=== PATIENT | male | born 1985 ===

== ENCOUNTER 2016-11-26 08:09 | Emergency (ER) | payer OTHER ==
[2016-11-26 08:20] VITALS: RESP 18
[2016-11-26] MEDS ORDERED: Lidocaine 5% Patch TD STA (08:40)
[2016-11-26] MEDS ORDERED: Lidocaine 5% Patch TD ONE (09:06)
--- NOTE | 2016-11-26 09:26 | C.PDOC ---
History Of Present Illness 31 yr old male presents to the ER with complaints of left sided back pain, radiating down the left leg for the past 1 week. Patient states the pain started after lifting a window while at work. Reports he has been taking Tylenol and Advil with minimal relief. Patient denies abdominal pain, diarrhea, constipation, dysuria, incontinence, weakness or numbness. Time Seen by Provider: 11/26/16 08:30 Chief Complaint (Nursing): Back Pain History Per: Patient History/Exam Limitations: no limitations Onset/Duration Of Symptoms: Days (1 week) Current Symptoms Are (Timing): Still Present Associated Symptoms: None Recent travel outside of the [place]: No Past Medical History Reviewed: Historical Data, Nursing Documentation, Vital Signs Vital Signs: Last Vital Signs Temp 97.9 F 11/26/16 09:45 Pulse 84 11/26/16 09:45 Resp 18 11/26/16 09:45 BP 125/77 11/26/16 09:45 Pulse Ox 98 11/26/16 09:45 Family History: States: No Known Family Hx - Social History Hx Alcohol Use: No Hx Substance Use: No - Immunization History Hx Tetanus Toxoid Vaccination: Yes Hx Influenza Vaccination: Yes Hx Pneumococcal Vaccination: No Review Of Systems Except As Marked, All Systems Reviewed And Found Negative. Gastrointestinal: Negative for: Abdominal Pain, Diarrhea, Constipation Genitourinary: Negative for: Dysuria, Incontinence Musculoskeletal: Positive for: Back Pain (Left sided), Leg Pain (radiating pain down the left leg) Neurological: Negative for: Weakness, Numbness Physical Exam - Physical Exam Appears: Non-toxic, No Acute Distress Skin: Warm, Dry, No Rash Head: Atraumatic, Normacephalic Eye(s): bilateral: Normal Inspection Oral Mucosa: Moist Neck: Normal ROM Chest: Symmetrical, No Tenderness Cardiovascular: Rhythm Regular, No Murmur Respiratory: Normal Breath Sounds, No Rales, No Rhonchi, No Stridor, No Wheezing Gastrointestinal/Abdominal: Normal Exam, Soft, No Tenderness, No Guarding, No Rebound Back: Normal Inspection, No Vertebral Tenderness, No Decreased ROM, No Muscle Spasm, Paraspinal Tenderness, Other ((+) Paralumbar tenderness.) Extremity: Normal ROM, No Tenderness, No Deformity, No Swelling Neurological/Psych: Oriented x3, Normal Speech, Normal Motor Gait: Steady ED Course And Treatment O2 Sat by Pulse Oximetry: 95 (RA) Pulse Ox Interpretation: Normal Medical Decision Making Medical Decision Making: PLAN: * Lidoderm TD * Valium PO * Toradol IM Re-eval: Patient reports pain is improving and is ambulatory without signs of discomfort. Disposition Counseled Patient/Family Regarding: Diagnosis, Need For Followup, Rx Given - Disposition Referrals: [facility] at [facility] [Outside] [facility] [place] [Outside] [facility]. [employer] [place] [Outside] Disposition: HOME/ ROUTINE Disposition Time: 09:25 Condition: STABLE Additional Instructions: Vaya a hill mdico o la clnica en 2-5 figueredo sin falta, para mas evaluacin. [place] los medicamentos ashley indicado. Volver a la kyle de emergencia en cualquier momento si los sntomas persisten o empeoran. Prescriptions: Cyclobenzaprine [Cyclobenzaprine HCl] 10 mg PO TID #30 tab Ibuprofen [Motrin] 600 mg PO Q8 #30 tab Instructions: Sciatica (ED) Forms: Numerous (Persian) Print Language: SAMI - POA Present On Arrival: None - Clinical Impression Clinical Impression: Sciatica, Low back strain, Low back pain - PA / TALENT DIRECTOR / Resident Statement MD/DO has reviewed & agrees with the documentation as recorded. - Scribe Statement The provider has reviewed the documentation as recorded by the Scribe Lisa Whittaker All medical record entries made by the Scribe were at my direction and personally dictated by me. I have reviewed the chart and agree that the record accurately reflects my personal performance of the history, physical exam, medical decision making, and the department course for this patient. I have also personally directed, reviewed, and agree with the discharge instructions and disposition.
[2016-11-26 09:46] VITALS: BP 125/77; PULSE 84; TEMP 97.9
[2016-11-26 18:44] VITALS: O2SAT 95
== END 2016-11-26 09:53 | disposition home or self-care (01) ==
LOC: C.ER 08:09
DX: M54.40 Lumbago with sciatica, unspecified side (principal); S39.012A Strain of muscle, fascia and tendon of lower back, initial encounter; X50.0XXA Overexertion from strenuous movement or load, initial encounter; Y93.89 Activity, other specified; Y92.89 Other specified places as the place of occurrence of the external cause; Y99.8 Other external cause status
CPT/HCPCS: 96372; 99283; J1885